=== PATIENT | male | born 1965 | race Caucasian/White ===

== ENCOUNTER 2021-10-05 12:30 | Inpatient (IN) | payer BC, SELFPAY ==
[2021-10-05] VITALS (12 sets, daily range): BP systolic 118–153; BP diastolic 71–88; PULSE 53–85; RESP 16–20; TEMP 36.2–37.1; O2SAT 94–100
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
[2021-10-05] MEDS: HYDROmorphone 2 MG/ML VIAL 1 MG IVP ×2 (14:00→17:19)
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
[2021-10-05] MEDS: Normal Saline Flush 10 ML SYR IVP (16:14)
[2021-10-05] MEDS: Omnipaque 350 MG/ML 100 ML BTL IJ (16:14)
--- NOTE | 2021-10-05 17:00 | DI.VRAD_ITS ---
Addendum created by Shorty Drummond MD on 10/05/2021 5:06:27 PM EDT: THIS REPORT CONTAINS FINDINGS THAT MAY BE CRITICAL TO PATIENT CARE. The findings were verbally communicated via telephone conference with nikole mahoney at 5:05 PM EDT on 10/05/2021. The findings were acknowledged and understood. Initial report created on 10/05/2021 4:59:35 PM EDT: PROCEDURE INFORMATION: Exam: CT Angiography Neck With Contrast Exam date and time: 10/05/2021 4:13 PM Age: 55 years old Clinical indication: Injury or trauma; Fall; Blunt trauma; Neck TECHNIQUE: Imaging protocol: Computed tomography angiography of the neck with contrast. 3D rendering (Not supervised by radiologist): MIP and/or 3D reconstructed images were created by the technologist. Contrast material: OMNIPAQUE 350; Contrast volume: 100 ml; Contrast route: INTRAVENOUS (IV); COMPARISON: CR XR RIBS RT W PA LAT CHEST 10/05/2021 1:52 PM FINDINGS: Right common carotid artery: No stenosis. No dissection or occlusion. Right internal carotid artery: No stenosis of the extracranial segment. No dissection or occlusion. Right external carotid artery: No occlusion or stenosis of the origin. Left common carotid artery: No stenosis. No dissection or occlusion. Left internal carotid artery: No stenosis of the extracranial segment. No dissection or occlusion. Left external carotid artery: No occlusion or stenosis of the origin. Right vertebral artery: No stenosis. No dissection or occlusion. Left vertebral artery: No stenosis. No dissection or occlusion. Soft tissues: Edema throughout the subcutaneous fat and musculature of the right chest and partially visualized right shoulder. Bones/joints: Comminuted displaced fracture of the right clavicle. Mild to moderate multilevel degenerative changes of the cervical spine. Pleural spaces: Trace right pneumothorax. IMPRESSION: 1. Trace right pneumothorax. 2. No arterial injury identified within the neck. 3. No acute fracture of the cervical spine. 4. Displaced and comminuted right clavicle fracture with edema and probable muscular injury of the right chest and partially visualized shoulder. REFERENCES: NASCET CRITERIA. The degree of internal carotid artery stenosis is based on NASCET criteria. Normal is no stenosis. Mild is less than 50% stenosis. Moderate is 50-69% stenosis. Severe is 70% to 99% stenosis. Total occlusion is no detectable patent lumen. Dictated and Authenticated by: Shorty Drummond MD. Ordering:JOHNATHAN Nava MD
--- NOTE | 2021-10-05 17:05 | DI.VRAD_ITS ---
Addendum created by Rosa Menjivar DO on 10/05/2021 5:09:27 PM EDT: A a or smaller in the okay rightThe findings were verbally communicated via telephone conference at 5:09 PM EDT on 10/05/2021 with nikole mahoney. The findings were acknowledged and understood. A year E Initial report created on 10/05/2021 5:05:13 PM EDT: PROCEDURE INFORMATION: Exam: CT Chest With Contrast; Diagnostic Exam date and time: 10/05/2021 4:27 PM Age: 55 years old Clinical indication: Injury or trauma; Fall; Blunt trauma (contusions or hematomas) TECHNIQUE: Imaging protocol: Diagnostic computed tomography of the chest with contrast. 3D rendering (Not supervised by radiologist): MIP and/or 3D reconstructed images were created by the technologist. Contrast material: OMNIPAQUE 350; Contrast volume: 100 ml; Contrast route: INTRAVENOUS (IV); COMPARISON: CR XR RIBS RT W PA LAT CHEST 10/05/2021 1:52 PM FINDINGS: Lungs: Mild patchy bilateral lower lobe ground-glass and consolidative opacities, right greater than left, may represent hypoventilatory change or, less likely, lung contusion. Small right pneumothorax, predominantly anterior, extending from apex to lower lung zone. Pleural spaces: See Lungs finding. Heart: Unremarkable. No cardiomegaly. No pericardial effusion. Lymph nodes: Unremarkable. No enlarged lymph nodes. Vasculature: Unremarkable. No aortic aneurysm. Liver: Prominent left and caudate lobes, suggesting hepatic fibrosis. Possible mild nodularity of anterior margin of left lobe, 3-450, which raises concern for cirrhosis. Bones/joints: Displaced comminuted right fracture mid to distal 3rd of the right clavicle. Minimally displaced right lateral 7th rib fracture. Minimal inferior bowing of the right lateral 3rd rib, 6-61, may represent a nondisplaced fracture. Multilevel degenerative change of the spine. Soft tissues: Subcutaneous fat stranding of the right anterior upper chest/supraclavicular region. Other findings: Excretory phase postcontrast imaging. IMPRESSION: 1. Small right pneumothorax and mild right lateral chest wall subcutaneous emphysema. 2. Mild patchy bilateral lower lobe ground-glass and consolidative opacities, right greater than left, hypoventilatory change or, less likely, lung contusion. 3. Displaced comminuted right mid to distal clavicular fracture. Right lateral 7th rib fracture. Possible nondisplaced right 3rd rib fracture. 4. Findings suggest cirrhotic liver morphology. Dictated and Authenticated by: Rosa Menjivar MD. Ordering:JOHNATHAN Nava MD
[2021-10-05] MEDS: Normal Saline 1,000 ML 1000 ML IV (17:30)
[2021-10-05 17:36] LABS: Source Nasal/Nares
[2021-10-05 17:37] LABS: Abs Immature Grans 0.01 10^3/uL (0.0-0.06); Absolute Basophil Count 0.04 10^3/uL (0.0-0.2); Absolute Eosinophil Count 0.01 10^3/uL (0.0-0.7); Absolute Monocyte Count 0.81 10^3/uL (0.1-0.8); Absolute Neutrophil Count 7.18 10^3/uL (1.2-6.7); Basophils % 0.4; Eosinophils % 0.1; HCT 39.7 % (40.0-50.0); HGB 13.2 g/dL (13.5-17.5); Immature Grans % 0.1; MCH 32.4 pg (27.0-33.0); MCHC 33.2 % (32.0-36.0); MCV 98 fL (80-95); Neutrophils % 79.4; Platelet Count 240 10^3/uL (130-400); RBC 4.07 10^6/uL (4.36-5.78); RDW 12.4 % (11.8-14.1); RDW-SD 44.8 fL; WBC 9.05 10^3/uL (4.4-10.8)
[2021-10-05 17:53] LABS: ALT 35 U/L (16-63); AST 31 U/L (15-37); Albumin 3.6 g/dL (3.4-5.0); Alkaline Phosphatase 56 U/L (46-116); Anion Gap 8.2 mmol/L (3-11); BUN 17 mg/dL (7-18); Bilirubin, Total 0.6 mg/dL (0.2-1.0); CO2 25.8 mmol/L (21.0-32.0); CREATININE 0.8 mg/dL (0.70-1.30); Calcium 8.8 mg/dL (8.5-10.1); Chloride 102 mmol/L (98-107); Glucose 84 mg/dL (74-106); Potassium 4.4 mmol/L (3.5-5.1); Sodium 136 mmol/L (136-145); Total Protein 6.8 g/dL (6.4-8.2)
--- NOTE | 2021-10-05 18:13 | NUR.NOTE ---
Nursing Note: Yahaira [phone]
[2021-10-05 18:17] LABS: COVID-19 PCR Negative (Negative)
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
[2021-10-05] MEDS: Ibuprofen 600 MG TAB PO (19:39)
[2021-10-05] MEDS: Acetaminophen 325 MG TAB 500 MG PO (19:40)
[2021-10-05] MEDS: Enoxaparin 40 MG/0.4 ML SYR SC (19:41)
[2021-10-05] MEDS: Famotidine 20 MG TAB PO (20:12)
[2021-10-05] MEDS: Methocarbamol 750 MG TAB PO (22:42)
[2021-10-06] VITALS (7 sets, daily range): BP systolic 123–134; BP diastolic 75–85; PULSE 50–69; RESP 16–18; TEMP 36–36.8; O2SAT 98–99
[2021-10-06] MEDS: oxyCODONE 5 MG TAB PO ×2 (06:14→19:10)
[2021-10-06 06:19] LABS: Abs Immature Grans 0.01 10^3/uL (0.0-0.06); Absolute Basophil Count 0.04 10^3/uL (0.0-0.2); Absolute Eosinophil Count 0.08 10^3/uL (0.0-0.7); Absolute Lymphocyte Count 1.21 10^3/uL (1.2-3.4); Absolute Monocyte Count 0.78 10^3/uL (0.1-0.8); Absolute Neutrophil Count 3.88 10^3/uL (1.2-6.7); Basophils % 0.7; Eosinophils % 1.3; HCT 41.2 % (40.0-50.0); HGB 13.5 g/dL (13.5-17.5); Immature Grans % 0.2; Lymphocytes % 20.2; MCH 32.8 pg (27.0-33.0); MCHC 32.8 % (32.0-36.0); MCV 100 fL (80-95); MPV 9.3 fL (8.0-11.0); Neutrophils % 64.6; Platelet Count 235 10^3/uL (130-400); RBC 4.12 10^6/uL (4.36-5.78); RDW 12.6 % (11.8-14.1); RDW-SD 46.7 fL
[2021-10-06 06:46] LABS: ALT 29 U/L (16-63); AST 29 U/L (15-37); Albumin 3.2 g/dL (3.4-5.0); Alkaline Phosphatase 56 U/L (46-116); Anion Gap 7.4 mmol/L (3-11); BUN 16 mg/dL (7-18); Bilirubin, Total 1.1 mg/dL (0.2-1.0); CO2 26.6 mmol/L (21.0-32.0); CREATININE 0.7 mg/dL (0.70-1.30); Calcium 8.7 mg/dL (8.5-10.1); Chloride 103 mmol/L (98-107); Glucose 91 mg/dL (74-106); Potassium 3.7 mmol/L (3.5-5.1); Sodium 137 mmol/L (136-145); Total Protein 6.4 g/dL (6.4-8.2)
--- NOTE | 2021-10-06 08:00 | DI.RAD_ITS ---
Exam(s) XR CHEST 2V PA LATERAL EXAM: XR CHEST 2V PA LATERAL CLINICAL HISTORY: eval for change in pneumothorax TECHNIQUE: 2D digital imaging was performed. COMPARISON: CR,XR XR RIBS RT W PA LAT CHEST from 10/05/[address] CHEST W from 10/05/2021 FINDINGS: There has been interval increase in size of the right pneumothorax when compared with the prior chest x-ray. There are multiple right rib fractures. There is a tiny right pleural effusion. The left l ninfa is clear. The heart appears mildly enlarged. A right clavicle fracture is again noted. The lat eral view is limited by the patient arm positioning. There degenerative changes in the spine. IMPRESSION: Small right pneumothorax with increase in size when compared with prior chest x-ray. DATA REPOSITORY: RADIATION DOSE DELIVERED:
[2021-10-06] MEDS: Famotidine 20 MG TAB PO ×2 (08:11→20:08)
[2021-10-06] MEDS: Acetaminophen 500 MG TAB PO ×4 (08:11→19:10)
[2021-10-06] MEDS: Methocarbamol 750 MG TAB PO ×4 (08:11→20:07)
--- NOTE | 2021-10-06 11:54 | DI.VRAD_ITS ---
PROCEDURE INFORMATION: Exam: XR Chest Exam date and time: 10/06/2021 11:15 AM Age: 55 years old Clinical indication: Other: Eval for change in pneumothorax TECHNIQUE: Imaging protocol: XR of the chest. Views: 2 views. COMPARISON: CT CHEST W 10/05/2021 4:27 PM FINDINGS: Lungs: Bibasilar atelectasis versus consolidation. Pleural spaces: The volume of pneumothorax on the right appears increased when compared to the examination of 10/05/2021. Heart/Mediastinum: Unremarkable. No cardiomegaly. Bones/joints: Unremarkable. IMPRESSION: The volume of right-sided pneumothorax appears increased when compared to the previous exam. THIS REPORT CONTAINS FINDINGS THAT MAY BE CRITICAL TO PATIENT CARE. The findings were verbally communicated via telephone conference with Jonnie Medina at 11:54 AM EDT on 10/06/2021. The findings were acknowledged and understood. Dictated and Authenticated by: Abundio Lopez MD. Ordering:THOMAS Cristina MD
[2021-10-06] MEDS: Ibuprofen 600 MG TAB PO ×2 (12:02→20:07)
--- NOTE | 2021-10-06 13:00 | PGE_ITS ---
Date of Service Date of service: 10/06/21 Time of Service: 13:00 Assessment and Plan Assessment and plan (1) Multiple fractures of ribs: Status: Acute Assessment and plan: Pain control with scheduled acetaminophen and ibuprofen, oxycodone prn, morphine prn aggressive incentive spirometry pulmonary toilet cough and deep breathing exercises respiratory therapy following (2) Pneumothorax: Status: Acute Assessment and plan: Continuous oxygen therapy Incentive spirometry Serial exams to eval for respiratory distress CXR revealed increased apical pneumothorax; chest tube/14Fr catheter placed (see separate Op note) ; repeat CXR pending (3) Right clavicle fracture: Status: Acute Assessment and plan: Acute displaced comminuted right clavicular fracture, no skin compromise noted --pain control --recalled phone ortho consult to review CT findings of mid to distal displaced comminuted Right clavicle fracture. They still recommend sling with close f/u wi th an orthopedic surgeon on discharge --will discharge with CD of radiologic findings as the patient does not live locally Subjective Subjective Interval history since last seen: Pt feels well overall. Still with significant pain in clavicular area, so difficult to take deep breaths. He is making efforts to use incentive spirometry frequently. Received a critical result call from ad that the right-sided pneumothorax appears to be enlarged by about 20-30% on CXR this AM. Exam Const General: cooperative, healthy appearing, no acute distress, not diaphoretic, not ill appearing and other (appears a little uncomfortable) Neck Neck: trachea midline, supple and anterior neck swelling (on right) Chest Chest: tenderness rib and clavicle and other (a little bruising in infraclavicular area) Resp Auscultation: clear to auscultation bilaterally and diminished lung sounds (in right superior kaiser) Cardio Rate: regular rate Rhythm: regular rhythm Heart Sounds: S1 normal and S2 normal GI Inspection: normal to inspection, no abdominal wall ecchymosis and non-distended Palpation: soft, not firm, no guarding and nontender Auscultation: normal bowel sounds Extrem Right upper extremity: normal capillary refill and shoulder/upper arm (ecchymoses and swelling over right clavicle, arm in sling) Details: tenderness and swelling; No no cyanosis Psych Mental Status: mental status grossly normal Speech and Movement: speech and movement normal Mood: congruent mood Affect: normal affect Attitude: cooperative Thought Content: normal Insight: insight good Judgment: judgment good Objective Last Vital Signs Temp 98.2 F 10/06/21 08:47 Pulse 69 10/06/21 08:47 Resp 18 10/06/21 08:47 BP 123/75 10/06/21 08:47 Pulse Ox 98 10/06/21 08:47 Laboratory Results - last 24 hr 10/05/21 10/05/21 10/05/21 17:25 17:30 17:30 WBC 9.05 RBC 4.07 L Hgb 13.2 L Hct 39.7 L MCV 98 H MCH 32.4 MCHC 33.2 RDW 12.4 Plt Count 240 MPV 9.0 Immature Gran % 0.1 Neutrophils % 79.4 Lymphocytes % 11.0 Monocytes % 9.0 Eosinophils % 0.1 Basophils % 0.4 Nucleated RBC % 0.0 Absolute Neutrophils 7.18 H Absolute Lymphocytes 1.00 L Absolute Monocytes 0.81 H Absolute Eosinophils 0.01 Absolute Basophils 0.04 Sodium 136 Potassium 4.4 Chloride 102 Carbon Dioxide 25.8 Anion Gap 8.2 BUN 17 Creatinine 0.8 Estimated GFR/1.73 m2 >= 60.00 Glucose 84 Calcium 8.8 Total Bilirubin 0.6 AST 31 ALT 35 Alkaline Phosphatase 56 Total Protein 6.8 Albumin 3.6 COVID-19 Source Nasal/Nares SARS-CoV-2 (PCR) Negative 10/06/21 10/06/21 05:23 05:23 WBC 6.00 RBC 4.12 L Hgb 13.5 Hct 41.2 MCV 100 H MCH 32.8 MCHC 32.8 RDW 12.6 Plt Count 235 MPV 9.3 Immature Gran % 0.2 Neutrophils % 64.6 Lymphocytes % 20.2 Monocytes % 13.0 Eosinophils % 1.3 Basophils % 0.7 Nucleated RBC % 0.0 Absolute Neutrophils 3.88 Absolute Lymphocytes 1.21 Absolute Monocytes 0.78 Absolute Eosinophils 0.08 Absolute Basophils 0.04 Sodium 137 Potassium 3.7 Chloride 103 Carbon Dioxide 26.6 Anion Gap 7.4 BUN 16 Creatinine 0.7 Estimated GFR/1.73 m2 >= 60.00 Glucose 91 Calcium 8.7 Total Bilirubin 1.1 H AST 29 ALT 29 Alkaline Phosphatase 56 Total Protein 6.4 Albumin 3.2 L COVID-19 Source SARS-CoV-2 (PCR)
--- NOTE | 2021-10-06 13:48 | INITIAL_ITS ---
- If Service Date Differs Date of service: 10/06/21 Time of Service: 13:48 Care Management Initial Assess REASON FOR HOSPITALIZATION:: R rib fxs, trace pneumothorax, R clavicle fx. PAST MEDICAL HISTORY/PAST SURGICAL HISTORY:: All Active Problems: Multiple f ractures of ribs (Acute), Pneumothorax (Acute), and Right clavicle fracture (Acute). Medical History: No significant past medical history. Surgical History: H/O removal of cyst - on chin, as a child, History of elbow surgery, and Injury of quadriceps tendon - With repair. PREVIOUS FUNCTIONAL STATUS/SOCIAL/FAMILY SUPPORTS:: Rosalio lives in [place] with his Yahaira and their dog. He does not have any children. He names his and his sister as his family supports. 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 In his free time, he enjoys running and bike riding/racing. Rosalio is independent at baseline. CURRENT FUNCTIONAL STATUS:: Rosalio is lying in bed when CM comes to meet with him. He is pleasant and easily engages in conversation. He shares his disappointment that he is not able to return home today but is agreeable to remaining at the hospital until he is cleared for discharge by his provider. ADVANCE DIRECTIVES:: None on file; CM offers form and patient declines. Has patient been provided with info about the portal/API?: Yes Did the patient sign up for the portal?: No CODE STATUS:: Full Code INSURANCE COVERAGE / FINANCIAL ISSUES:: BCBS CURRENT HOME/COMMUNITY SERVICES/EQUIPMENT:: None. PRIMARY CARE PHYSICIAN:: Dr. Duarte ([facility]). POTENTIAL DISCHARGE NEEDS:: Follow up appointments with PCP and surgeon. PATIENT/FAMILY EDUCATION NEEDS:: Review of discharge instructions, including medications, limitations, and follow up plan of care; discuss Ask Me Three and self management. ANTICIPATED BARRIERS TO DISCHARGE:: No anticipated barriers currently. TRANSPORTATION:: Via private vehicle with family. PLAN:: Rosalio will return home with no services when medically cleared by provider. He will follow up with his PCP, surgeon and discharge plan of care as directed. He will be transported home via private vehicle by family when ready. CM will continue to follow.
[2021-10-06] MEDS: Lidocaine 1% Multi-Dose 50 ML VIAL (13:54)
[2021-10-06] MEDS: MORPHine 2 MG/ML SYR IVP ×2 (13:54→14:30)
[2021-10-06] MEDS: Normal Saline Flush 10 ML SYR IVP ×2 (13:54→20:08)
--- NOTE | 2021-10-06 14:30 | DI.RAD_ITS ---
Exam(s) XR PORTABLE CHEST AP EXAM: XR PORTABLE CHEST AP CLINICAL HISTORY: post chest tube for pneumothorax TECHNIQUE: 2D digital imaging was performed. COMPARISON: CR,XR XR CHEST 2V PA LATERAL from 10/06/2021 FINDINGS: A right chest tube has been inserted which lies at the medial right lung base. There is been some in terval improvement in size of right apical pneumothorax. The lungs remain clear. Heart is again no esme to be enlarged. Right clavicle fracture and right rib fractures. IMPRESSION: Decrease in size of right pneumothorax status post placement of chest tube. DATA REPOSITORY: RADIATION DOSE DELIVERED:
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
--- NOTE | 2021-10-06 15:28 | DI.VRAD_ITS ---
PROCEDURE INFORMATION: Exam: XR Chest Exam date and time: 10/06/2021 3:00 PM Age: 55 years old Clinical indication: Injury or trauma; Fall; Blunt trauma (contusions or hematomas) TECHNIQUE: Imaging protocol: XR of the chest. Views: 1 view. Other technique: Portable exam. COMPARISON: CR XR CHEST 2V PA LATERAL 10/06/2021 11:15 AM FINDINGS: Tubes, catheters and devices: A right-sided chest tube has been placed at the lung base. There appears to be a residual right apical pneumothorax, reduced in size compared to prior study. Lungs: Unremarkable. No consolidation. Pleural spaces: See Tubes, catheters and devices finding. Heart/Mediastinum: No change cardiomegaly. Bones/joints: Right rib fractures less well seen. Right clavicular fracture again noted. IMPRESSION: Right-sided pneumothorax reduced in size compared to previous study post chest tube placement. Dictated and Authenticated by: Nia Friedman MD. Ordering:THOMAS Cristina MD
[2021-10-06] MEDS: Enoxaparin 40 MG/0.4 ML SYR SC (20:07)
[2021-10-07] MEDS: Acetaminophen 500 MG TAB PO ×7 (00:28→23:58)
[2021-10-07] MEDS: Ibuprofen 600 MG TAB PO ×3 (03:42→19:28)
--- NOTE | 2021-10-07 07:41 | DI.RAD_ITS ---
Exam(s) XR PORTABLE CHEST AP EXAM: XR PORTABLE CHEST AP CLINICAL HISTORY: pneumothorax, chest tube in place TECHNIQUE: 2D digital imaging was performed. COMPARISON: CR,XR XR PORTABLE CHEST AP from 10/06/2021 FINDINGS: There has been no change in the positioning of the right-sided chest tube at the right lung base. No pneumothorax is visible. the lungs appear clear. Right clavicle fracture and right rib fractures again noted. IMPRESSION: No visible pneumothorax. DATA REPOSITORY: RADIATION DOSE DELIVERED:
[2021-10-07 08:07] VITALS: BP 117/63; PULSE 57; RESP 16; TEMP 36.8; O2SAT 99
--- NOTE | 2021-10-07 08:17 | W.PM.PROGNOT ---
Date of Service Date of service: 10/07/21 Time of Service: 08:17 Assessment and Plan Assessment and plan (1) Multiple fractures of ribs: Status: Acute Assessment and plan: Pain control with scheduled acetaminophen and ibuprofen, oxycodone prn, morphine prn Anesthesia Consult placed for possible nerve block to improve pain control Chest tube in place, (+) air leak aggressive incentive spirometry pulmonary toilet cough and deep breathing exercises respiratory therapy following Awaiting AM CXR results. (2) Pneumothorax: Status: Acute Assessment and plan: Continuous oxygen therapy Incentive spirometry Serial exams to eval for respiratory distress CXR revealed increased apical pneumothorax; chest tube/14Fr catheter placed (see separate Op note) ; repeat CXR pending (3) Right clavicle fracture: Status: Acute Assessment and plan: Acute displaced comminuted right clavicular fracture, no skin compromise noted --pain control --recalled phone ortho consult to review CT findings of mid to distal displaced comminuted Right clavicle fracture. They still recommend sling with close f/u with an orthopedic surgeon on discharge --will discharge with CD of radiologic findings as the patient does not live locally Subjective Subjective Interval history since last seen: Patient reports some discomfort which he directly relates to the chest tube. He states the chest tube inhibits him from taking in a full breath. Exam Const General: cooperative and comfortable Resp Effort & Inspection: normal respiratory effort, no audible wheezes and no cough Other: Chest tube in place. (+) air leak noted while conversing Objective Last Vital Signs Temp 36.8 C 10/07/21 08:07 Pulse 57 L 10/07/21 08:07 Resp 16 10/07/21 08:07 BP 117/63 10/07/21 08:07 Pulse Ox 99 10/07/21 08:07
[2021-10-07] MEDS: Famotidine 20 MG TAB PO ×2 (08:29→19:27)
[2021-10-07] MEDS: Methocarbamol 750 MG TAB PO ×4 (08:29→19:28)
[2021-10-07] MEDS: Bisacodyl 5 MG TABEC PO (10:44)
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
[2021-10-07 14:22] VITALS: O2SAT 98
[2021-10-07 16:05] VITALS: BP 125/81; PULSE 55; RESP 17; TEMP 36.5; O2SAT 98
[2021-10-07] MEDS: Normal Saline Flush 10 ML SYR IVP (19:29)
[2021-10-07] MEDS: Enoxaparin 40 MG/0.4 ML SYR SC (19:30)
[2021-10-07 19:47] VITALS: BP 116/68; PULSE 59; RESP 17; TEMP 36.6; O2SAT 99
[2021-10-07 23:40] VITALS: BP 124/73; PULSE 60; RESP 20; TEMP 36; O2SAT 98
[2021-10-08] VITALS (15 sets, daily range): BP systolic 111–133; BP diastolic 70–81; PULSE 47–64; RESP 14–20; TEMP 35.7–37.1; O2SAT 95–98
[2021-10-08] MEDS: Acetaminophen 500 MG TAB PO ×4 (04:08→15:48)
[2021-10-08] MEDS: Ibuprofen 600 MG TAB PO ×3 (04:08→19:57)
[2021-10-08] MEDS: Methocarbamol 750 MG TAB PO ×4 (07:42→19:58)
[2021-10-08] MEDS: Famotidine 20 MG TAB PO ×2 (07:42→19:57)
--- NOTE | 2021-10-08 09:40 | W.PM.PROGNOT ---
Date of Service Date of service: 10/08/21 Time of Service: 08:01 Assessment and Plan Assessment and plan (1) Multiple fractures of ribs: Status: Acute Assessment and plan: Pain control with scheduled acetaminophen and ibuprofen, oxycodone prn, morphine prn Anesthesia Consult placed for possible nerve block to improve pain control; Patient is undecided if he wishes to proceed with nerve block at this time. Chest tube in place, (+) air leak aggressive incentive spirometry pulmonary toilet cough and deep breathing exercises respiratory therapy following Reassurance provided that at this time, he is making progress. Encouraged activity OOB such as walking with nsg and sitting in the chair throughout the day. Patient seen and examined. Agree with above. He still does have a small air leak today. No PTX on CXR. He is having signif pain today. WIll see if anesthesia can do rib blocks. cont pulm toilet (2) Pneumothorax: Status: Acute Assessment and plan: Continuous oxygen therapy Incentive spirometry Serial exams to eval for respiratory distress (3) Right clavicle fracture: Status: Acute Assessment and plan: Acute displaced comminuted right clavicular fracture, no skin compromise noted --pain control --will discharge with CD of radiologic findings as the patient does not live locally Subjective Subjective Interval history since last seen: Patient expresses that he is eager to be d/c. He states he is normally a very active person and he is struggling with the idea of having to continue to stay in the hospital and not being able to do his normal activities. He has been using the incentive spirometer. Getting comfortable for sleep has been very difficult due to right shoulder pain and pain around the chest tube. Exam Const General: cooperative and comfortable Orientation: alert and oriented x3 Resp Effort & Inspection: normal respiratory effort, no audible wheezes and no cough Other: Chest tube in place- Air leak noted while conversing and coughing Objective Last Vital Signs Temp 36.1 C L 10/08/21 08:41 Pulse 58 L 10/08/21 08:41 Resp 16 10/08/21 08:41 BP 119/73 10/08/21 08:41 Pulse Ox 97 10/08/21 08:41
--- NOTE | 2021-10-08 11:46 | DI.RAD_ITS ---
Exam(s) XR PORTABLE CHEST AP EXAM: XR PORTABLE CHEST AP CLINICAL HISTORY: chest pain in pt with pneumothorax. TECHNIQUE: 2D digital imaging was performed. COMPARISON: CR,XR XR PORTABLE CHEST AP from 10/06/2021 CR XR PORTABLE CHEST AP from 10/07/2021 FINDINGS: Single AP portable view. Heart size is upper normal. The mediastinum is not widened. Position of the right chest catheter is again noted in the lower right pleural space. The right lung remains expanded. There is no obvious pneumothorax on either side. No infiltrates. No pleural eff usions. Fractured right clavicle again noted midshaft level. IMPRESSION: Lungs are clear. No pneumothorax evident at this time. Right side chest pleural base catheter again noted. DATA REPOSITORY: RADIATION DOSE DELIVERED: All CT scans at this facility use at least one of these dose optimization techniques: automated exposure control; mA and/or kV adjustment per patient size (includes targeted e xams where dose is matched to clinical indication); or iterative reconstruction.
[2021-10-08] MEDS: Normal Saline Flush 10 ML SYR IVP ×3 (14:33→21:40)
[2021-10-08] MEDS: MORPHine 2 MG/ML SYR IVP ×2 (14:33→19:59)
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
[2021-10-08] MEDS: oxyCODONE 5 MG TAB PO ×2 (17:10→21:39)
[2021-10-08] MEDS: Acetaminophen 500 MG TAB 1000 MG PO (17:10)
[2021-10-08] MEDS: Polyethylene Glycol 3350 17 GM PACKET PO (17:11)
--- NOTE | 2021-10-08 17:27 | CMPROGNOTE_ITS ---
- If Service Date Differs Date of service: 10/08/21 Time of Service: 17:27 Care Management Progress Note S/O: Rosalio continues to be closely monitored and treated. Per surgical MD, pt notes increase pain today and problems w/ constipation pain plan and bowel plan adjusted CM continues to follow. A: 55 year old male admitted to [facility] for R Rib Fractures, trace pneumothorax, R clavicle fx P: Anticipate Rosalio will return home with no services anticipated at this time. He will follow up with his PCP, surgeon and discharge plan of care as directed. He will be transported home via private vehicle by family when ready. CM will continue to follow.
[2021-10-08] MEDS: Enoxaparin 40 MG/0.4 ML SYR SC (19:58)
[2021-10-08] MEDS: Gabapentin 300 MG CAP PO (21:39)
[2021-10-09] VITALS (7 sets, daily range): BP systolic 115–126; BP diastolic 71–80; PULSE 50–58; RESP 16–17; TEMP 36–36.7; O2SAT 50–99
[2021-10-09] MEDS: Acetaminophen 500 MG TAB 1000 MG PO ×5 (00:50→23:11)
[2021-10-09] MEDS: Normal Saline Flush 10 ML SYR IVP ×4 (00:54→23:10)
[2021-10-09] MEDS: MORPHine 2 MG/ML SYR IVP ×2 (00:55→23:10)
[2021-10-09] MEDS: oxyCODONE 5 MG TAB PO (05:16)
[2021-10-09] MEDS: Ibuprofen 600 MG TAB PO ×3 (05:18→20:34)
[2021-10-09] MEDS: Methocarbamol 750 MG TAB PO ×4 (08:00→20:35)
[2021-10-09] MEDS: Famotidine 20 MG TAB PO ×2 (08:00→20:34)
[2021-10-09] MEDS: Polyethylene Glycol 3350 17 GM PACKET PO (08:01)
--- NOTE | 2021-10-09 08:14 | W.PM.PROGNOT ---
Date of Service Date of service: 10/09/21 Time of Service: 08:19 Assessment and Plan Assessment and plan (1) Multiple fractures of ribs: Status: Acute Assessment and plan: Pain control with scheduled acetaminophen and ibuprofen, oxycodone prn, morphine prn Chest tube in place, no air leak noted this morning with use of incentive spirometer, coughing or talking. Continue aggressive incentive spirometry pulmonary toilet cough and deep breathing exercises respiratory therapy following Encouraged activity OOB such as walking with nsg and sitting in the chair throughout the day. sxs of feeling bloated/constipated has improved. Last BM on 10/08 Will consider placing on chest tube on water seal for a few hours and re-check xray. (2) Pneumothorax: Status: Acute Assessment and plan: Continuous oxygen therapy Incentive spirometry Serial exams to eval for respiratory distress (3) Right clavicle fracture: Status: Acute Assessment and plan: Acute displaced comminuted right clavicular fracture, no skin compromise noted --pain control --will discharge with CD of radiologic findings as the patient does not live locally Subjective Subjective Interval history since last seen: Patient reports his pain is less in his right shoulder and more localized around the chest tube insertion site. He states his feelings of constipation has improved. He has been diligent on using the incentive spirometer. Exam Const General: cooperative, healthy appearing and comfortable Orientation: alert and oriented x3 Resp Effort & Inspection: normal respiratory effort, no audible wheezes and no cough Other: Chest tube in place on wall suction- No air leak noted during this mornings visit. Objective Last Vital Signs Temp 36 C L 10/09/21 03:41 Pulse 50 L 10/09/21 03:41 Resp 16 10/09/21 03:41 BP 116/72 10/09/21 03:41 Pulse Ox 50 L 10/09/21 03:41
--- NOTE | 2021-10-09 08:21 | DI.RAD_ITS ---
Exam(s) XR PORTABLE CHEST AP EXAM: XR PORTABLE CHEST AP CLINICAL HISTORY: ptx TECHNIQUE: 2D digital imaging was performed. COMPARISON: No exams were available for comparison FINDINGS: There has been change in position of the right chest tube which now projects in the midportion of the right lung. There is small amount of air outside the chest wall, similar to the prior exam. There is no visible pneumothorax. The lungs appear clear. The heart is enlarged, unchanged. IMPRESSION: No visible pneumothorax. No acute findings. DATA REPOSITORY: RADIATION DOSE DELIVERED:
[2021-10-09] MEDS: Lidocaine 5% Patch 1 PATCH TP (08:43)
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
--- NOTE | 2021-10-09 11:10 | PHA.REVIEW ---
Pharmacy Admission Review - Admission Clinical Review (Last Reviewed 10/05/21 @ 20:37 by Jonnie Medina MD) Multiple fractures of ribs (Acute) Pneumothorax (Acute) Right clavicle fracture (Acute) No Known Allergies Allergy (Unverified 10/05/21 12:54) Resuscitation Status Full Code Height 5 ft 9 in Weight 77.111 kg - Renal Dosing Renal Dosing: BUN 16 mg/dL (7-18) 10/06/21 05:23 Creatinine 0.7 mg/dL (0.70-1.30) 10/06/21 05:23 Medications needing adjustments: Reviewed (Crcl ~105 mL/min, current meds okay) - Anticoagulation Anticoagulation: Hgb 13.5 g/dL (13.5-17.5) 10/06/21 05:23 Hct 41.2 % (40.0-50.0) 10/06/21 05:23 Plt Count 235 10^3/uL (130-400) 10/06/21 05:23 Creatinine 0.7 mg/dL (0.70-1.30) 10/06/21 05:23 DVT Prophylaxis: Reviewed Medications: Enoxaparin Therapeutic Anticoagulation: N/A - Opiate Usage Evaluate Pain Scale/Pains Meds: Reviewed Scheduled Bowel Reg ordered if on Opiates?: Yes - Relevant Labs Sodium 137 mmol/L (136-145) 10/06/21 05:23 Potassium 3.7 mmol/L (3.5-5.1) 10/06/21 05:23 Chloride 103 mmol/L (98-107) 10/06/21 05:23 Electrolytes, C-Reactive P, ESR: Reviewed - DM Control DM Control: Glucose 91 mg/dL (74-106) 10/06/21 05:23 Insulin Dosing: N/A - Heart Failure/OR EF%, JORDEN's, B-Blockers, Diuretics: N/A - BP Control BP Control: Blood Pressure 117/80 Blood Pressure 116/72 Blood Pressure 111/70 If elevated: N/A - Qtc Review If Elevated: N/A - IV to PO Switch IV Medications: Reviewed - Home Meds Home Med List reviewed: Reviewed Relevent Home Meds Not ordered & why?: no known home meds - Current meds Current Medication Order Review: Intervened (adjusted the lidocaine patch order and patch removal order based on when the first patch was actually applied.) - Comments Comments/Follow Ups: Watch VS, labs and for med changes.
--- NOTE | 2021-10-09 15:45 | DI.RAD_ITS ---
Exam(s) XR PORTABLE CHEST AP EXAM: XR PORTABLE CHEST AP CLINICAL HISTORY: s/p chest tube removal TECHNIQUE: 2D digital imaging was performed. COMPARISON: CR XR PORTABLE CHEST AP POST LINE from 10/09/2021 FINDINGS: The chest tube has been removed. A trace amount of residual air is seen outside the right chest wal l. No visible pneumothorax. The lungs are clear. IMPRESSION: No visible pneumothorax status post removal right chest tube. DATA REPOSITORY: RADIATION DOSE DELIVERED:
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
[2021-10-09] MEDS: Enoxaparin 40 MG/0.4 ML SYR SC (20:33)
[2021-10-09] MEDS: Lidocaine Patch Removal 1 EACH TD (20:36)
[2021-10-09] MEDS: Gabapentin 300 MG CAP PO (21:44)
[2021-10-10] VITALS (16 sets, daily range): BP systolic 92–146; BP diastolic 42–86; PULSE 43–62; RESP 14–19; TEMP 35.1–36.7; O2SAT 96–99; BMI 25.1
[2021-10-10] MEDS: Ibuprofen 600 MG TAB PO ×2 (04:17→11:27)
--- NOTE | 2021-10-10 04:45 | DI.RAD_ITS ---
Exam(s) XR PORTABLE CHEST AP EXAM: XR PORTABLE CHEST AP CLINICAL HISTORY: chest pain at insertion site TECHNIQUE: COMPARISON: CR XR PORTABLE CHEST AP from 10/09/2021 FINDINGS: Examination is compared with prior examination October 09. There is a recurrent moderate-sized right pn eumothorax. Note is again made of right clavicular fracture. Small quantity of gas again noted in r ight chest wall, unchanged. No gross pleural effusion on this frontal film. IMPRESSION: Recurrent right pneumothorax, the initial post chest tube removal films showed no pneumothorax but th is examination obtained approximately 14 hours later shows significant recurrent right pneumothorax.. RADIATION DOSE DELIVERED: Total DLP
[2021-10-10] MEDS: LORazepam 1 MG TAB PO (05:17)
[2021-10-10] MEDS: Acetaminophen 500 MG TAB 1000 MG PO ×3 (05:17→17:04)
--- NOTE | 2021-10-10 06:53 | DI.VRAD_ITS ---
PROCEDURE INFORMATION: Exam: XR Chest Exam date and time: 10/10/2021 4:58 AM Age: 55 years old Clinical indication: Pain and device placement; Other: Chest pain at insertion site of chest tube TECHNIQUE: Imaging protocol: XR of the chest. Views: 1 view. COMPARISON: CR XR PORTABLE CHEST AP 10/09/2021 3:47 PM FINDINGS: Tubes, catheters and devices: Removal of the right-sided chest tube. Lungs: Unremarkable. No consolidation. Pleural spaces: There is a pneumothorax on the right, approximately 25% in volume. Heart/Mediastinum: Unremarkable. No cardiomegaly. Bones/joints: Unremarkable. IMPRESSION: Patient is status post chest tube removal on the right, with re-accumulation of right pneumothorax, approximately 25% in volume. THIS REPORT CONTAINS FINDINGS THAT MAY BE CRITICAL TO PATIENT CARE. The findings were verbally communicated via telephone conference with [charge nurse Ashley Perez at 6:53 AM EDT on 10/10/2021. The findings were acknowledged and understood. Dictated and Authenticated by: Abundio Lopez MD. Ordering:FIGUEROA Dunn MD
[2021-10-10 07:15] LABS: Platelet Count 241 10^3/uL (130-400)
--- NOTE | 2021-10-10 07:49 | W.PM.PROGNOT ---
Date of Service Date of service: 10/10/21 Time of Service: 07:00 Assessment and Plan Assessment and plan (1) Multiple fractures of ribs: Status: Acute Assessment and plan: Chest tube was placed on water seal x 2 hours, then the chest tube was removed yesterday afternoon 10/09. Initial X-ray did not show recurrence of pneumothorax. Chest XR this morning showed return of pneumothorax. Patient's 02 sats are normal, denies SOB, chest pain or tightness at this time. Patient will require re-insertion of a chest tube. Will continue with pain management. Regular diet Mild sleep. Chest tube today. It was discussed with the patient. Risks include bleeding infection, continued pneumothorax, damage to the lung, and anesthesia. Patient will be here another 3 to 4 days. I did discuss with the patient fixing the clavicle does not well. And I will consult Dr. Escamilla (2) Pneumothorax: Status: Acute Assessment and plan: Continuous oxygen therapy Incentive spirometry Serial exams to eval for respiratory distress (3) Right clavicle fracture: Status: Acute Assessment and plan: Acute displaced comminuted right clavicular fracture, no skin compromise noted --pain control --will discharge with CD of radiologic findings as the patient does not live locally Subjective Subjective Interval history since last seen: Patient reports he noted a change in his breathing last night, it felt like his right lung wasn't opening up as much as the left. He denies feeling SOB, chest pain or tightness. Exam Const General: cooperative, healthy appearing and comfortable Orientation: alert and oriented x3 Resp Effort & Inspection: normal respiratory effort, no audible wheezes and no cough Objective Last Vital Signs Temp 36.6 C 10/10/21 04:27 Pulse 57 L 10/10/21 04:27 Resp 16 10/10/21 04:27 BP 123/81 10/10/21 04:45 Pulse Ox 97 10/10/21 04:27 Laboratory Results - last 24 hr 10/10/21 06:55 Plt Count 241
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
--- NOTE | 2021-10-10 09:25 | CMPROGNOTE_ITS ---
- If Service Date Differs Date of service: 10/10/21 Time of Service: 09:25 Care Management Progress Note S/O: Per MD, Chest XR showed return of pneumothorax, chest tube will be re- inserted. No change to overall plan. CM continues to follow. A: 55 year old male admitted to [facility] for R Rib Fractures, trace pneumothorax, R clavicle fx P: Anticipate Rosalio will return home with no services anticipated at this time. He will follow up with his PCP, surgeon and discharge plan of care as directed. He will be transported home via private vehicle by family when ready. CM will continue to follow.
--- NOTE | 2021-10-10 11:15 | DI.RAD_ITS ---
Exam(s) XR CLAVICLE RT EXAM: XR CLAVICLE RT CLINICAL HISTORY: RIGHT CLAVICLE FRACTURE TECHNIQUE: 2D and realtime digital imaging was performed. COMPARISON: No exams were available for comparison FINDINGS: C-arm fluoroscopy was utilized by Dr. Escamilla during open reduction internal fixation of clavicular fra cture. Hard copy show plate and screw fixation in place transfixing the fracture fragments. IMPRESSION: RADIATION DOSE DELIVERED: erica Lund= 0.82 mGy
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
[2021-10-10] MEDS: Lactated Ringers 1,000 ML 30 ML IV (12:00)
[2021-10-10] MEDS: Bupivacaine 0.5% Pres-Free W/EPI 10 ML VIAL (12:03)
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
[2021-10-10] MEDS: Bupivacaine 0.25% Pres-Free 30 ML VIAL (13:20)
[2021-10-10] MEDS: Lidocaine 1.5 % Pres-Free W/EPI 1/200,000 30 ML VIAL (13:20)
--- NOTE | 2021-10-10 15:30 | DI.RAD_ITS ---
Exam(s) XR PORTABLE CHEST AP EXAM: XR PORTABLE CHEST AP CLINICAL HISTORY: chest tube placement TECHNIQUE: COMPARISON: CR,XR XR PORTABLE CHEST AP from 10/10/2021 FINDINGS: Portable chest at 1515 hours. Previously described right pneumothorax appears to have resolved with insertion of a right thoracotomy tube. No other significant change seen. Left lung remains clear . IMPRESSION: RADIATION DOSE DELIVERED: Total DLP
--- NOTE | 2021-10-10 15:42 | ROE_ITS ---
Date of service: 10/10/21 Time of Service: 12:00 Operative Note Operative Note DATE OF PROCEDURE: 10/10/21 PRE-OP DIAGNOSIS: Right displaced midshaft clavicle fracture POST-OP DIAGNOSIS: same PROCEDURE: Right clavicle ORIF, CPT #51844 SURGEON: Chin Escamilla PACKAGING DESIGN ENGINEER: Ashley Acharya Refer to Anesthesia Record ESTIMATED BLOOD LOSS: 5 Patient was transported to: PACU Patient's condition: stable Implants: Synthes 3.5mm lateral anterosuperior plate with 6 medial screws holes: 5x 2.7 mm locking screws, 4x 3.5mm cortex screws PliaFX Prime 2.5cc allograft demineralized bone fiber Indications: Please see complete medical record for details. Procedure Description: In the operating room, following general surgery chest tube placement, general endotracheal anesthesia was induced. The patient was positioned supine on the operating room table. All bony prominences were well-padded. Preoperative antibiotics were administered. The right clavicle was prepped and draped in the usual sterile fashion. The correct patient, procedure, and side of the procedure were all verified prior to incision. The planned clavicle incision was pretty injected with 30 cc of 50: 50 mixture of bupivacaine and lidocaine containing epinephrine. The obvious palpable clavicle fracture site was approached raising full-thickness flaps down to bone. The incision is extended medially laterally as necessary. Care was taken to preserve soft tissue attachments. There was impressive comminution, acute bone loss, and multiple segmental fracture components. Fracture ends were cleaned for visualization and numerous small pieces of bone that were not attached to any tissue were removed. The intact medial clavicle and largest anterior inferior segmental piece were reduced with excellent fracture keys and held in place with bone forceps. A 2.7 mm lag screw was attempted but did not have strong far cortical fixation. Instead a suture tape was passed through the drill hole around the clavicle and a doubled over Nice knot used to secure these pieces of bone. This was repeated more laterally with good bone reduction and fixation. The large posterior inferior segmental piece could be mobilized into position and was left for later repair. The medial combined clavicle to the intact lateral clavicle was reduced and held in position with an additional suture tape cerclage passed diagonally from the anterior segmental piece through the lateral clavicle. There was slight gapping at the central fracture site where there was a fracture yanez and more posteriorly and superiorly some bone loss from the removed fragments. Various precontoured plates were reviewed and the best fit was with the anterior superior lateral cluster plate combination for the medial and lateral fracture extension. The plate was bent to match patient anatomy. The plate was secured centrally medially and laterally with bone clamps. An initial lateral 3.5 mm cortex screw was used to reduce plate to bone. Next, four 2.7 mm locking screws were placed in the lateral cluster. A bone clamp was then used to achieve compression drawing the plate medially and then clamping it securely followed by placement of an eccentric 3.5 mm cortex screw superiorly in the central of the medial 3 screw holes. This screw had exc ellent fixation strength and achieved the planned plate translation with good resulting bone apposition at the complex fracture site. The large posterior inferior bone fragment was then mobilized into reduced position beneath the more lateral of the medial 3 screw holes. It was maintained reduced with bone clamp while a 3.5 mm drill was used carefully in bicortical fashion followed by placement of 3.5 mm cortex screw. This segmental piece had excellent reduction and fixation to the construct. Lastly, the most medial screw was directed obliquely medially to extend the construct medially and carefully drilled in a bicortical fashion following placement of a 3.5 mm cortex screw with excellent fixation as well. The plate and fractures were all inspected and demonstrated excellent stability and fixation strength. AP, axial tilt, and [id number] fluoroscopy confirmed appropriate fracture reduction and hardware placement. An additional fifth lateral to patellar locking screw was placed. The initial lateral 3.5 mm cortex screw was withdrawn, remeasured a combination for plate compression of bone, and replaced. Final fluoroscopic images obtained. The wound was copiously irrigated with normal saline. Given the impressive comminuted segmental nature of the fracture, acute bone loss, and multitrauma consisting of pneumothorax and multiple rib fractures, the decision was made to augment the healing potential about this clavicle fracture with placement of multiple allograft bone fibers filling in all voids posteriorly and superiorly. Deep and subcutaneous tissue was closed in a full-thickness watertight fashion with buried interrupted 2-0 Monocryl. An additional 30 cc of bupivacaine and lidocaine containing epinephrine mixture was infiltrated about the surgical site. Subcuticular layer was closed using running 3-0 Monocryl. Skin glue was applied over the incision followed by a Mepilex Band-Aid. The patient awoke from anesthesia without complication and was transferred to the recovery room in a stable condition.
--- NOTE | 2021-10-10 16:21 | W.ANESPOSTOP ---
Postoperative Evaluation Date, Time and Location Date Performed: 10/10/21 Time Performed: 15:55 Patient Location: PACU Vital Signs Most Recent Imported Vital Signs: Most Recent Vital Signs Temp Pulse Resp BP Pulse Ox 36.4 C L 44 L 19 99/60 L 98 10/10/21 15:53 10/10/21 15:53 10/10/21 15:53 10/10/21 15:53 10/10/21 15:53 Pain Score Most Recent Pain Score: Most Recent Pain Score Pain Level [Right Knee] 1 10/05/21 13:03 Pain Level 5 10/10/21 15:53 Assessment Mental Status: Awake (Alert & Oriented to Patient Baseline) Airway and Respiratory Function: Patent airway with normal (patient baseline) respiratory exam Cardiovascular Function: Hemodynamically Stable Hydration Status: Adequately Hydrated Nausea & Vomiting: No Nausea or Vomiting Pain: Pain is tolerable per patient Peripheral Nerve Block: Patient did not receive a nerve block
[2021-10-10] MEDS: Ketorolac 15 MG/ML VIAL IVP (17:04)
[2021-10-10] MEDS: Normal Saline Flush 10 ML SYR IVP (17:05)
[2021-10-10] MEDS: Methocarbamol 750 MG TAB PO ×2 (17:05→19:40)
[2021-10-10] MEDS: Enoxaparin 40 MG/0.4 ML SYR SC (19:39)
[2021-10-10] MEDS: Famotidine 20 MG TAB PO (19:40)
[2021-10-10] MEDS: Protein Nutritional Supplement 16 GM 1 OUNCE PACKET PO (19:40)
[2021-10-10] MEDS: ceFAZolin 1 GM/50 ML BAG IV (20:32)
[2021-10-10] MEDS: Gabapentin 300 MG CAP PO (21:20)
[2021-10-11] MEDS: Acetaminophen 500 MG TAB 1000 MG PO ×4 (00:02→17:00)
[2021-10-11] MEDS: Normal Saline Flush 10 ML SYR IVP ×5 (00:03→21:25)
[2021-10-11] MEDS: Ketorolac 15 MG/ML VIAL IVP ×4 (00:03→16:59)
[2021-10-11] MEDS: MORPHine 2 MG/ML SYR IVP ×2 (00:28→21:24)
[2021-10-11 03:15] VITALS: BP 118/62; PULSE 56; RESP 16; TEMP 37; O2SAT 97
[2021-10-11] MEDS: ceFAZolin 1 GM/50 ML BAG IV ×2 (04:02→11:01)
[2021-10-11] MEDS: oxyCODONE 5 MG TAB PO (05:02)
[2021-10-11 07:44] VITALS: BP 132/63; PULSE 58; RESP 18; TEMP 36.6; O2SAT 100
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
--- NOTE | 2021-10-11 07:58 | PGE_ITS ---
Date of Service Date of service: 10/11/21 Time of Service: 07:58 Assessment and Plan Assessment and plan (1) Right clavicle fracture: Status: Acute Assessment and plan: 55-year-old male postop day #1 status post right clavicle ORIF doing well Non-weightbearing right upper extremity. Do not lift or carry more than a coffee. Gentle range of motion near the body and light use for ADLs okay. Sling when up and about or out of the home for 6 weeks Keep dressing clean, dry, and in place until follow-up. A physical therapy prescription will be provided separately after follow-up if needed Follow up on 10/23/21 at 1:[address] Escamilla at [facility] Please call me directly with any questions or concerns about this patient Remainder of care per primary team Subjective Subjective Interval history since last seen: Right collarbone feeling well. Denies any significant numbness or tingling about the surgical site or right upper extremity Exam Narrative Exam Narrative: Improved comfort. Right clavicle dressing clean dry intact. Neurovascular intact about surgical site, shoulder and throughout right upper extremity. Tolerates gentle range of motion without difficulty. Objective Last Vital Signs Temp 97.9 F 10/11/21 07:44 Pulse 58 L 10/11/21 07:44 Resp 18 10/11/21 07:44 BP 132/63 10/11/21 07:44 Pulse Ox 100 10/11/21 07:44
[2021-10-11] MEDS: Protein Nutritional Supplement 16 GM 1 OUNCE PACKET PO ×3 (08:02→20:02)
[2021-10-11] MEDS: Famotidine 20 MG TAB PO ×2 (08:02→20:01)
[2021-10-11] MEDS: Polyethylene Glycol 3350 17 GM PACKET PO (08:02)
[2021-10-11] MEDS: Methocarbamol 750 MG TAB PO ×4 (08:02→20:01)
[2021-10-11] MEDS: Lidocaine 5% Patch 1 PATCH TP (08:03)
--- NOTE | 2021-10-11 08:30 | DI.RAD_ITS ---
Exam(s) XR PORTABLE CHEST AP EXAM: XR PORTABLE CHEST AP CLINICAL HISTORY: PTX. TECHNIQUE: 2D digital imaging was performed. COMPARISON: CR,XR XR PORTABLE CHEST AP from 10/10/2021 CR XR PORTABLE CHEST AP from 10/10/2021 FINDINGS: Single AP portable view. Heart size is upper normal. The mediastinum is not widened or shifted. Now dorsal fusion plate across mid right clavicular fracture site. There is a right thoracotomy tube in the lower right pleural space and the right lung is mostly re-ex panded without an obvious remaining pneumothorax evident. No infiltrates. No shift of midline struc tures. IMPRESSION: Right lung appears re-expanded. New right clavicular fusion plate DATA REPOSITORY: RADIATION DOSE DELIVERED: All CT scans at this facility use at least one of these dose optimization techniques: automated exposure control; mA and/or kV adjustment per patient size (includes targeted e xams where dose is matched to clinical indication); or iterative reconstruction.
--- NOTE | 2021-10-11 10:38 | PDOC.CMPRO ---
- If Service Date Differs Date of service: 10/11/21 Time of Service: 10:38 Care Management Progress Note S/O: Rosalio was sitting up in bed when CM met with him. He was pleasant and cooperative and engaged easily with CM. Paul informed CM that he had hoped to be discharged yesterday but he developed a new pneumothorax which will require him to remain hospitalized at least until Thursday. While he would prefer to go home, Rosalio indicated that he understands why he needs to remain at [facility]. He also shared that he is pleased that he was able to have his clavicle repaired as the original plan was to have the procedure done at [facility] in a couple of weeks. A: 55 year old male admitted to [facility] 09/08- for R Rib Fractures, trace pneumothorax, R clavicle fx P: Anticipate Rosalio will return home with no new services. He will follow up with his PCP, surgeon and discharge plan of care as directed. He will be transported home via private vehicle by family when ready. CM will continue to follow and assess for discharge concerns..
[2021-10-11 11:19] VITALS: BP 132/74; PULSE 58; RESP 15; TEMP 37; O2SAT 98
[2021-10-11] MEDS: traMADol 50 MG TAB PO ×2 (14:18→20:10)
[2021-10-11 14:48] VITALS: BP 105/59; PULSE 56; RESP 16; TEMP 36.8; O2SAT 100
[2021-10-11 19:19] VITALS: BP 111/65; PULSE 55; RESP 12; TEMP 36.8; O2SAT 97
[2021-10-11] MEDS: Enoxaparin 40 MG/0.4 ML SYR SC (20:02)
[2021-10-11] MEDS: Melatonin 3 MG TAB PO (21:24)
[2021-10-11] MEDS: Gabapentin 300 MG CAP PO (21:24)
[2021-10-11 23:03] VITALS: BP 102/60; PULSE 78; RESP 14; TEMP 36; O2SAT 97
[2021-10-12] MEDS: traMADol 50 MG TAB PO ×4 (02:59→20:39)
[2021-10-12] MEDS: MORPHine 2 MG/ML SYR IVP ×2 (02:59→20:39)
[2021-10-12] MEDS: Normal Saline Flush 10 ML SYR IVP ×3 (03:00→13:36)
[2021-10-12 03:15] VITALS: BP 123/77; PULSE 59; RESP 20; TEMP 36.6; O2SAT 98
[2021-10-12 07:49] VITALS: BP 121/77; PULSE 58; RESP 16; TEMP 36.8; O2SAT 97
[2021-10-12] MEDS: Protein Nutritional Supplement 16 GM 1 OUNCE PACKET PO ×3 (07:55→20:33)
[2021-10-12] MEDS: Polyethylene Glycol 3350 17 GM PACKET PO (07:55)
[2021-10-12] MEDS: Acetaminophen 500 MG TAB 1000 MG PO ×3 (07:56→18:21)
[2021-10-12] MEDS: Methocarbamol 750 MG TAB PO ×4 (07:56→20:34)
[2021-10-12] MEDS: Famotidine 20 MG TAB PO ×2 (07:56→20:33)
[2021-10-12] MEDS: Ketorolac 15 MG/ML VIAL IVP ×3 (07:57→18:21)
--- NOTE | 2021-10-12 11:20 | DI.RAD_ITS ---
Exam(s) XR PORTABLE CHEST AP EXAM: XR PORTABLE CHEST AP CLINICAL HISTORY: PTX TECHNIQUE: COMPARISON: CR XR PORTABLE CHEST AP from 10/11/2021 FINDINGS: Note is again made of right thoracotomy tube in place. No evidence of recurrent right pneumothorax. Small quantity of gas again noted in right chest wall. Left lung remains clear and well expanded. No evidence of consolidation or pleural effusion. IMPRESSION: RADIATION DOSE DELIVERED: Total DLP
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
[2021-10-12 11:43] VITALS: BP 107/63; PULSE 56; RESP 16; TEMP 36.4; O2SAT 97
--- NOTE | 2021-10-12 12:49 | PGE_ITS ---
Date of Service Date of service: 10/12/21 Time of Service: 14:00 Assessment and Plan Assessment and plan (1) Multiple fractures of ribs: Status: Acute Assessment and plan: Chest tube in place. No air leak noted this morning on water seal POD #2 s/p repair of right midshaft clavicle fracture Continue with multimodal pain management Regular diet Activity as tolerated, encouraged ambulation and sitting in the chair Continue pulmonary toilet (2) Pneumothorax: Status: Acute Assessment and plan: Chest tube in place on water seal, no ajr leak Remove chest tube in AM with follow up x-ray AM x-ray stable, no recurrent ptx (3) Right clavicle fracture: Status: Acute Subjective Subjective Patient reports: no new complaints, pain is less and tolerating a regular diet Exam Const General: cooperative, healthy appearing and comfortable [facility] Head: normal to inspection, normocephalic and atraumatic Chest Chest: localized rib tenderness with anteroposterior compression and other (right sided chest tube no air leak) Cardio Rate: regular rate Rhythm: regular rhythm GI Inspection: normal to inspection Palpation: soft Percussion: normal to percussion Neuro General: patient alert, patient awake and patient oriented x3 Objective Last Vital Signs Temp 97.5 F L 10/12/21 11:43 Pulse 56 L 10/12/21 11:43 Resp 16 10/12/21 11:43 BP 107/63 10/12/21 11:43 Pulse Ox 97 10/12/21 11:43
[2021-10-12 15:21] VITALS: BP 113/65; PULSE 62; RESP 18; TEMP 36.2; O2SAT 98
[2021-10-12 20:33] VITALS: BP 113/70; PULSE 51; RESP 18; TEMP 36.1; O2SAT 97
[2021-10-12] MEDS: Enoxaparin 40 MG/0.4 ML SYR SC (20:33)
[2021-10-12] MEDS: Gabapentin 300 MG CAP PO (20:39)
[2021-10-12] MEDS: Melatonin 3 MG TAB PO (20:39)
[2021-10-13] MEDS: Acetaminophen 500 MG TAB 1000 MG PO ×3 (05:10→17:42)
[2021-10-13] MEDS: traMADol 50 MG TAB PO (05:10)
[2021-10-13] MEDS: Ketorolac 15 MG/ML VIAL IVP ×3 (05:10→17:42)
[2021-10-13 07:35] VITALS: BP 120/77; PULSE 51; RESP 18; TEMP 36.4; O2SAT 99
[2021-10-13 08:00] VITALS: RESP 18; O2SAT 99
[2021-10-13] MEDS: Protein Nutritional Supplement 16 GM 1 OUNCE PACKET PO ×3 (08:19→20:45)
[2021-10-13] MEDS: Methocarbamol 750 MG TAB PO ×4 (08:19→20:46)
[2021-10-13] MEDS: Famotidine 20 MG TAB PO ×2 (08:19→20:46)
--- NOTE | 2021-10-13 09:34 | DI.VRAD_ITS ---
PROCEDURE INFORMATION: Exam: XR Chest Exam date and time: 10/13/2021 8:37 AM Age: 55 years old Clinical indication: Condition or disease; Lung condition and disease; Other: Ptx TECHNIQUE: Imaging protocol: XR of the chest. Views: 1 view. COMPARISON: XR PORTABLE CHEST AP 10/12/2021 10:57 AM FINDINGS: Tubes, catheters and devices: A chest tube is visualized on the right. Lungs: Unremarkable. No consolidation. Pleural spaces: Unremarkable. No pleural effusion. No pneumothorax. Heart/Mediastinum: Unremarkable. No cardiomegaly. Bones/joints: Postoperative changes are noted within the right clavicle. IMPRESSION: No acute changes in cardiopulmonary status. Dictated and Authenticated by: Abundio Lopez MD. Ordering:DANN Garrett MD
--- NOTE | 2021-10-13 10:25 | DI.RAD_ITS ---
Exam(s) XR PORTABLE CHEST AP EXAM: XR PORTABLE CHEST AP CLINICAL HISTORY: PTX TECHNIQUE: COMPARISON: CR,XR XR PORTABLE CHEST AP from 10/12/2021 FINDINGS: Previously described right thoracotomy tube is again noted in position. No evidence of recurrent pne umothorax. No significant pleural effusion on this frontal film. IMPRESSION: RADIATION DOSE DELIVERED: Total DLP
[2021-10-13] MEDS: Normal Saline Flush 10 ML SYR IVP (11:52)
[2021-10-13 11:56] VITALS: BP 113/64; PULSE 53; RESP 16; TEMP 36.6; O2SAT 99
--- NOTE | 2021-10-13 12:05 | W.PM.PROGNOT ---
Date of Service Date of service: 10/13/21 Time of Service: 11:05 Assessment and Plan Assessment and plan (1) Multiple fractures of ribs: Status: Acute Assessment and plan: Chest tube removed at bedside without incident, occlusive dressing placed, repeat x-ray at 1600 Patient feels more comfortable waiting to go home until tomorrow due to recurrent pnemothorax after previous chest tube removal earlier in the week Understands if pneumothorax recurs again, he may need VATS POD #3 s/p repair of right midshaft clavicle fracture, outpatient follow up 10/23 Continue with multimodal pain management Regular diet Activity as tolerated, encouraged ambulation and sitting in the chair Continue pulmonary toilet (2) Pneumothorax: Status: Acute Assessment and plan: Chest tube removed AM x-ray stable, no recurrent ptx Repeat x-ray this afternoon after removal (3) Right clavicle fracture: Status: Acute Assessment and plan: -S/p ORIF, dressing to remain in place until outpatient orthopedic follow up 10/23 Subjective Subjective Patient reports: no new complaints, feels better and tolerating a regular diet Exam Const General: cooperative, healthy appearing and comfortable [facility] Head: normal to inspection, normocephalic and atraumatic Chest Chest: localized rib tenderness with anteroposterior compression and other (right sided chest tube no air leak, removed today) Cardio Rate: regular rate Rhythm: regular rhythm GI Inspection: normal to inspection Palpation: soft Percussion: normal to percussion Neuro General: patient alert, patient awake and patient oriented x3 Objective Last Vital Signs Temp 97.9 F 10/13/21 11:56 Pulse 53 L 10/13/21 11:56 Resp 16 10/13/21 11:56 BP 113/64 10/13/21 11:56 Pulse Ox 99 10/13/21 11:56
[2021-10-13 13:53] LABS: Platelet Count 285 10^3/uL (130-400)
[2021-10-13 15:22] VITALS: BP 116/74; PULSE 58; RESP 18; TEMP 36.6; O2SAT 99
--- NOTE | 2021-10-13 16:00 | DI.RAD_ITS ---
Exam(s) XR PORTABLE CHEST AP EXAM: XR PORTABLE CHEST AP CLINICAL HISTORY: chest tube removal TECHNIQUE: COMPARISON: CR,XR XR PORTABLE CHEST AP from 10/13/2021 FINDINGS: Portable AP chest at 1527 hours. The previously noted right thoracotomy tube has been removed. Ther e is no evidence of recurrent right pneumothorax. Left lung remains clear and well expanded as well. No pleural effusion on this frontal film. IMPRESSION: RADIATION DOSE DELIVERED: Total DLP
[2021-10-13 19:14] VITALS: BP 120/67; PULSE 51; RESP 18; TEMP 36.5; O2SAT 98
[2021-10-13] MEDS: Enoxaparin 40 MG/0.4 ML SYR SC (20:45)
[2021-10-13] MEDS: Gabapentin 300 MG CAP PO (20:46)
[2021-10-13] MEDS: Melatonin 3 MG TAB PO (20:46)
[2021-10-13 22:31] VITALS: BP 120/74; PULSE 54; RESP 18; TEMP 36.2; O2SAT 98
[2021-10-14] MEDS: Ketorolac 15 MG/ML VIAL IVP (01:10)
[2021-10-14] MEDS: Acetaminophen 500 MG TAB 1000 MG PO (01:10)
--- NOTE | 2021-10-14 01:15 | DI.RAD_ITS ---
Exam(s) XR PORTABLE CHEST AP EXAM: XR PORTABLE CHEST AP CLINICAL HISTORY: chest pain dim breath sounds TECHNIQUE: 2D digital imaging was performed. COMPARISON: No exams were available for comparison FINDINGS: No visible pneumothorax. Stable amount of air in the right chest wall. Both lungs are clear. Heart size unchanged. Fixation plate right clavicle. IMPRESSION: No visible pneumothorax. DATA REPOSITORY: RADIATION DOSE DELIVERED:
[2021-10-14] MEDS: MORPHine 2 MG/ML SYR IVP (01:24)
--- NOTE | 2021-10-14 03:09 | DI.VRAD_ITS ---
PROCEDURE INFORMATION: Exam: XR Chest Exam date and time: 10/14/2021 1:19 AM Age: 55 years old Clinical indication: On breathing; Prior surgery; Surgery date: 3-7 days post-operative; Surgery type: R clavicle plate 10/11, right thoracotomy tube removed 10/13; Patient HX: Previous right pneumothorax. Chest pain, dim breath sounds TECHNIQUE: Imaging protocol: XR of the chest. Views: 1 view. COMPARISON: CR XR PORTABLE CHEST AP 10/13/2021 3:27 PM FINDINGS: Lungs: Unremarkable. No consolidation. Pleural spaces: No pneumothorax. Heart/Mediastinum: Unremarkable. No cardiomegaly. Bones/joints: Previous repaired right clavicle fracture. Soft tissues: Subcutaneous emphysema along the right chest wall similar. IMPRESSION: No acute abnormality. Dictated and Authenticated by: Arsh Brown MD. Ordering:ERICA Rodriguez MD
[2021-10-14 03:10] VITALS: BP 117/72; PULSE 52; RESP 16; TEMP 36.6; O2SAT 99
[2021-10-14] MEDS: Methocarbamol 750 MG TAB PO (07:49)
[2021-10-14] MEDS: Famotidine 20 MG TAB PO (07:49)
[2021-10-14] MEDS: Polyethylene Glycol 3350 17 GM PACKET PO (07:50)
[2021-10-14] MEDS: Protein Nutritional Supplement 16 GM 1 OUNCE PACKET PO (07:50)
[2021-10-14] MEDS: Normal Saline Flush 10 ML SYR IVP (07:52)
[2021-10-14 08:12] VITALS: BP 110/62; PULSE 54; RESP 18; TEMP 36.3; O2SAT 98
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
--- NOTE | 2021-10-14 16:08 | PDOC.CMDIS ---
- If Service Date Differs Date of service: 10/14/21 Time of Service: 16:08 LACE Index Scoring Tool - Questions: Length of Stay (in days): 7 - 13 Acuity (Admit via E.D.?): Yes E.D. Visits: 1 - Answers: Total Score: 9 Risk of Readmission: Low Risk Care Management Discharge Reason for Hospitalization: R rib fxs, trace pneumothorax, R clavicle fx. Discharge Plan: Rosalio will return home with no new services. He will follow up with his PCP, surgeon and discharge plan of care as directed and will be transported home via private vehicle by family. Patient/Family Education Needs: Review of discharge instructions, including medications, limitations, and follow up plan of care; discuss Ask Me Three and self management.
== END 2021-10-14 10:27 | disposition home or self-care (01) | DRG 516 ==
LOC: ER 17:26 → MS 10-07 10:52
PROVIDERS: Student in an Organized Health Care Education/Training Program; Surgery; Admitting Provider Surgery; Emergency Provider Physician Assistant; Visit Provider Surgery
PROC: 0W9930Z Drainage of Right Pleural Cavity with Drainage Device, Percutaneous Approach (ICD-10-PCS; CPT 32551; principal; 2021-10-10 11:45)
PROC: 0PS904Z Reposition Right Clavicle with Internal Fixation Device, Open Approach (ICD-10-PCS; CPT 23515; 2021-10-10 11:45)
DX: S42.021A Displaced fracture of shaft of right clavicle, initial encounter for closed fracture (principal); S22.41XA Multiple fractures of ribs, right side, initial encounter for closed fracture; S27.0XXA Traumatic pneumothorax, initial encounter; S80.211A Abrasion, right knee, initial encounter; V19.9XXA Pedal cyclist (driver) (passenger) injured in unspecified traffic accident, initial encounter; K59.00 Constipation, unspecified
CPT/HCPCS: 32551 ×2; 23515; 20910; 36415; 70498; 71045; 73562; 80053; 85027; 87635; 96361; 96374; 96376; 99285; J1650; 71046; 71100; 71260; 73000; 85025; 85049; G0378; J0690; J1100; J1885; J2250; J2270; J2405; J3490

== ENCOUNTER 2021-10-23 14:04 | Outpatient (CLI) | payer BC, SELFPAY ==
--- NOTE | 2021-10-23 13:15 | DI.RAD_ITS ---
Exam(s) XR CLAVICLE RT EXAM: XR CLAVICLE RT CLINICAL HISTORY: right clavicle fx f/u. TECHNIQUE: 2D digital imaging was performed. COMPARISON: CR,XR XR CLAVICLE RT from 10/05/2021 FINDINGS: Two views There has been interval reduction internal fixation with placement of a dorsal fixation plate secured by vertical screws and there is satisfactory alignment of the healing fracture fragments. There is also no distraction of the AC joint. No hardware loosening and no radiographic evidence of osteomyel itis. IMPRESSION: Satisfactory appearance. DATA REPOSITORY: RADIATION DOSE DELIVERED:
== END 2021-10-23 14:05 | disposition home or self-care (01) ==
LOC: DIORS 14:04
PROVIDERS: Visit Provider Student in an Organized Health Care Education/Training Program
DX: S42.001D Fracture of unspecified part of right clavicle, subsequent encounter for fracture with routine healing (principal); X58.XXXD Exposure to other specified factors, subsequent encounter
CPT/HCPCS: 73000

== ENCOUNTER 2021-12-04 13:29 | Outpatient (CLI) | payer BC, SELFPAY ==
--- NOTE | 2021-12-04 13:15 | DI.RAD_ITS ---
Exam(s) XR CLAVICLE RT EXAM: XR CLAVICLE RT CLINICAL HISTORY: RIGHT CLAVICLE FX F/U TECHNIQUE: COMPARISON: CR XR CLAVICLE RT from 10/23/2021 FINDINGS: Two views were obtained and show previous described midclavicular fracture with plate and screw fixat ion in place. Alignment appears unchanged comparison with prior examination of October 23 IMPRESSION: RADIATION DOSE DELIVERED: Total DLP
== END 2021-12-04 13:30 | disposition home or self-care (01) ==
LOC: DIORS 13:30
PROVIDERS: Visit Provider Student in an Organized Health Care Education/Training Program
DX: S42.001D Fracture of unspecified part of right clavicle, subsequent encounter for fracture with routine healing (principal); X58.XXXD Exposure to other specified factors, subsequent encounter
CPT/HCPCS: 73000

== ENCOUNTER 2022-01-22 15:13 | Outpatient (CLI) | payer BC, SELFPAY ==
--- NOTE | 2022-01-22 13:45 | DI.RAD_ITS ---
Exam(s) XR CLAVICLE RT EXAM: XR CLAVICLE RT CLINICAL HISTORY: right clavicle fx f/u TECHNIQUE: COMPARISON: CR XR CLAVICLE RT from 12/04/2021 FINDINGS: Two views were obtained and show previous described midclavicular fracture with plate and screw fixat ion. Alignment appears unchanged comparison with prior examination of December 04. IMPRESSION: RADIATION DOSE DELIVERED: Total DLP
== END 2022-01-22 15:14 | disposition home or self-care (01) ==
LOC: DIORS 15:14
PROVIDERS: Visit Provider Student in an Organized Health Care Education/Training Program
DX: S42.001D Fracture of unspecified part of right clavicle, subsequent encounter for fracture with routine healing (principal); X58.XXXD Exposure to other specified factors, subsequent encounter
CPT/HCPCS: 73000